=== PATIENT | female | born 1935 | race Native Hawaiian/Other Pacific Islander ===

== ENCOUNTER 2019-12-20 13:17 | Outpatient (CLI) | payer OTHER | END 2019-12-20 20:11 | disposition home or self-care (01) | LOC: MAMMO 13:17 | DX: Z12.31 Encounter for screening mammogram for malignant neoplasm of breast (principal); N64.59 Other signs and symptoms in breast ==

== ENCOUNTER 2022-05-05 10:40 | Outpatient (CLI) | payer OTHER | END 2022-05-05 19:01 | disposition home or self-care (01) | LOC: US 10:40 | PROVIDERS: ATTEND Internal Medicine | DX: E05.80 Other thyrotoxicosis without thyrotoxic crisis or storm (principal) ==